=== PATIENT | male | born 1995 | race Hispanic/Latino ===

== ENCOUNTER 2020-06-03 10:00 | Emergency (ER) | payer MEDICARE ==
[2020-06-03] MEDS ORDERED: ONDANSETRON 4 MG ODT TAB PO ONE (11:44)
[2020-06-03] MEDS ORDERED: HYOSCYAMINE SUBL 0.125 MG TAB SL ONE (11:44)
[2020-06-03] MEDS ORDERED: ALUM-MAG HYDROXIDE-SIMETHICONE 200-200-20MG/5ML ORAL LIQD 30 ML PO ONE (11:44)
[2020-06-03] MEDS ORDERED: FAMOTIDINE 20 MG TAB PO ONE (11:44)
--- NOTE | 2020-06-03 11:54 | Emergency Department Report ---
ED General Adult HPI - General Chief complaint: Weakness Stated complaint: BP HIGH WEAKNESS Time Seen by Provider: 06/03/20 11:34 Source: patient Mode of arrival: Ambulatory Limitations: No Limitations - History of Present Illness Initial comments: Patient is a 24-year-old male presents emergency room with complaints of substernal chest pain that began this morning. He states that it comes and goes. He states that the pain is short mild pain per patient. He states he has been off of his nexium for 4 weeks. He states that he does get a burning se nsation from the epigastric region up to the throat. He states that he also has generalized weakness and occasional dry cough. He denies any fever, vomiting, diarrhea, shortness of breath, leg swelling. He has a past medical history of autism, bipolar, schizophrenia, "mild cerebral palsy". Allergy to penicillin. He denies any SI or HI. Patient is currently staying at [facility]. - Related Data Previous Rx's Medication Instructions Recorded Last Taken Type Docusate Sodium [Colace] 100 mg PO BID PRN #14 capsule 06/03/20 Unknown Rx Famotidine [Pepcid] 40 mg PO QHS #30 tablet 06/03/20 Unknown Rx Sucralfate [Carafate] 1 gm PO ACHS 7 Days #21 tablet 06/03/20 Unknown Rx Allergies Allergy/AdvReac Type Severity Reaction Status Date / Time Penicillins Allergy Rash Verified 06/03/20 10:32 ED Review of Systems ROS: Stated complaint: BP HIGH WEAKNESS Other details as noted in HPI Comment: All other systems reviewed and negative ED Past Medical Hx - Past Medical History Previous Medical History?: Yes Hx Psychiatric Treatment: Yes (schizoaffective, bipolar) Additional medical history: autism. cerebral palsy - Surgical History Past Surgical History?: Yes Additional Surgical History: wisdom teeth - Social History Smoking Status: Never Smoker Substance Use Type: None - Medications Home Medications: Home Medications Medication Instructions Recorded Confirmed Last Taken Type Docusate Sodium [Colace] 100 mg PO BID PRN #14 capsule 06/03/20 Unknown Rx Famotidine [Pepcid] 40 mg PO QHS #30 tablet 06/03/20 Unknown Rx Sucralfate [Carafate] 1 gm PO ACHS 7 Days #21 tablet 06/03/20 Unknown Rx ED Physical Exam - General Limitations: No Limitations General appearance: alert, in no apparent distress - Head Head exam: Present: atraumatic, normocephalic - Eye Eye exam: Present: normal appearance - ENT ENT exam: Present: mucous membranes moist - Respiratory Respiratory exam: Present: normal lung sounds bilaterally. Absent: respiratory distress, wheezes, rales, rhonchi, stridor, chest wall tenderness, accessory muscle use, decreased breath sounds, prolonged expiratory - Cardiovascular Cardiovascular Exam: Present: normal rhythm, tachycardia, normal heart sounds. Absent: systolic murmur, diastolic murmur, rubs, gallop - Extremities Exam Extremities exam: Absent: pedal edema, joint swelling, calf tenderness - Neurological Exam Neurological exam: Present: alert, oriented X3 - Psychiatric Psychiatric exam: Present: normal affect, normal mood - Skin Skin exam: Present: warm, dry ED Course Vital Signs 06/03/20 06/03/20 10:38 16:23 Temperature 98.3 F 98.8 F Pulse Rate 121 H 87 Respiratory 18 18 Rate Blood Pressure 147/87 Blood Pressure 118/73 [Right] O2 Sat by Pulse 96 98 Oximetry ED Medical Decision Making - Lab Data Result diagrams: 06/03/20 11:48 06/03/20 11:48 Lab Results 06/03/20 06/03/20 06/03/20 Range/Units 11:48 11:48 11:48 WBC 4.3 L (4.5-11.0) K/mm3 RBC 4.77 (3.65-5.03) M/mm3 Hgb 15.2 (11.8-15.2) gm/dl Hct 42.5 (35.5-45.6) % MCV 89 (84-94) fl MCH 32 (28-32) pg MCHC 36 H (32-34) % RDW 12.5 L (13.2-15.2) % Plt Count 217 (140-440) K/mm3 Lymph % (Auto) 31.1 (13.4-35.0) % Nicholas % (Auto) 11.9 H (0.0-7.3) % Eos % (Auto) 3.1 (0.0-4.3) % Baso % (Auto) 1.3 (0.0-1.8) % Lymph # 1.3 (1.2-5.4) K/mm3 Nicholas # 0.5 (0.0-0.8) K/mm3 Eos # 0.1 (0.0-0.4) K/mm3 Baso # 0.1 (0.0-0.1) K/mm3 Seg Neutrophils % 52.6 (40.0-70.0) % Seg Neutrophils # 2.3 (1.8-7.7) K/mm3 Sodium 139 (137-145) mmol/L Potassium 3.9 (3.6-5.0) mmol/L Chloride 99.3 (98-107) mmol/L Carbon Dioxide 26 (22-30) mmol/L Anion Gap 18 mmol/L BUN 9 (9-20) mg/dL Creatinine 0.8 (0.8-1.3) mg/dL Estimated GFR > 60 ml/min BUN/Creatinine Ratio 11 % Glucose 145 H (75-100) mg/dL Calcium 9.7 (8.4-10.2) mg/dL Magnesium 1.90 (1.7-2.3) mg/dL Total Bilirubin 0.20 (0.1-1.2) mg/dL AST 16 (5-40) units/L ALT 17 (7-56) units/L Alkaline Phosphatase 54 (35-129) units/L Total Creatine Kinase 133 (55-170) units/L Troponin T < 0.010 (0.00-0.029) ng/mL Total Protein 7.2 (6.3-8.2) g/dL Albumin 4.3 (3.9-5) g/dL Albumin/Globulin Ratio 1.5 % TSH 1.280 (0.270-4.200) mlU/mL Urine Color (Yellow) Urine Turbidity (Clear) Urine pH (5.0-7.0) Ur Specific [place] (1.003-1.030) Urine Protein (Negative) mg/dL Urine Glucose (UA) (Negative) mg/dL Urine Ketones (Negative) mg/dL Urine Blood (Negative) Urine Nitrite (Negative) Urine Bilirubin (Negative) Urine Urobilinogen (<2.0) mg/dL Ur Leukocyte Esterase (Negative) Urine WBC (Auto) (0.0-6.0) /HPF Urine RBC (Auto) (0.0-6.0) /HPF 06/03/20 06/03/20 Range/Units 14:17 14:35 WBC (4.5-11.0) K/mm3 RBC (3.65-5.03) M/mm3 Hgb (11.8-15.2) gm/dl Hct (35.5-45.6) % MCV (84-94) fl MCH (28-32) pg MCHC (32-34) % RDW (13.2-15.2) % Plt Count (140-440) K/mm3 Lymph % (Auto) (13.4-35.0) % Nicholas % (Auto) (0.0-7.3) % Eos % (Auto) (0.0-4.3) % Baso % (Auto) (0.0-1.8) % Lymph # (1.2-5.4) K/mm3 Nicholas # (0.0-0.8) K/mm3 Eos # (0.0-0.4) K/mm3 Baso # (0.0-0.1) K/mm3 Seg Neutrophils % (40.0-70.0) % Seg Neutrophils # (1.8-7.7) K/mm3 Sodium (137-145) mmol/L Potassium (3.6-5.0) mmol/L Chloride (98-107) mmol/L Carbon Dioxide (22-30) mmol/L Anion Gap mmol/L BUN (9-20) mg/dL Creatinine (0.8-1.3) mg/dL Estimated GFR ml/min BUN/Creatinine Ratio % Glucose (75-100) mg/dL Calcium (8.4-10.2) mg/dL Magnesium (1.7-2.3) mg/dL Total Bilirubin (0.1-1.2) mg/dL AST (5-40) units/L ALT (7-56) units/L Alkaline Phosphatase (35-129) units/L Total Creatine Kinase (55-170) units/L Troponin T < 0.010 (0.00-0.029) ng/mL Total Protein (6.3-8.2) g/dL Albumin (3.9-5) g/dL Albumin/Globulin Ratio % TSH (0.270-4.200) mlU/mL Urine Color Colorless (Yellow) Urine Turbidity Clear (Clear) Urine pH 8.0 H (5.0-7.0) Ur Specific [place] 1.005 (1.003-1.030) Urine Protein <15 mg/dl (Negative) mg/dL Urine Glucose (UA) Neg (Negative) mg/dL Urine Ketones Neg (Negative) mg/dL Urine Blood Neg (Negative) Urine Nitrite Neg (Negative) Urine Bilirubin Neg (Negative) Urine Urobilinogen < 2.0 (<2.0) mg/dL Ur Leukocyte Esterase Neg (Negative) Urine WBC (Auto) < 1.0 (0.0-6.0) /HPF Urine RBC (Auto) < 1.0 (0.0-6.0) /HPF Vital Signs 06/03/20 06/03/20 10:38 16:23 Temperature 98.3 F 98.8 F Pulse Rate 121 H 87 Respiratory 18 18 Rate Blood Pressure 147/87 Blood Pressure 118/73 [Right] O2 Sat by Pulse 96 98 Oximetry - EKG Data EKG shows normal: sinus rhythm, axis, intervals, QRS complexes, ST-T waves Rate: tachycardia (at 100) - Radiology Data Radiology results: report reviewed CHEST 2 VIEWS INDICATION / CLINICAL INFORMATION: Chest Pain. COMPARISON: None available. FINDINGS: SUPPORT DEVICES: None. HEART / MEDIASTINUM: No significant abnormality. LUNGS / PLEURA: No significant pulmonary or pleural abnormality. No pneumothorax. ADDITIONAL FINDINGS: No significant additional findings. IMPRESSION: 1. No acute findings. Signer Name: Khanh Coley MD Signed: 06/03/2020 1:48 PM Workstation Name: [id number] Transcribed By: TL Dictated By: Khanh Coley MD Electronically Authenticated By: Khanh Coley MD Signed Date/Time: 06/03/201347 DD/ 1347 TD/TT: - Medical Decision Making Patient is a 24-year-old male presents emergency room with complaints of substernal chest pain that began this morning. He states that it comes and goes. He states that the pain is short mild pain per patient. He states he has been off of his nexium for 4 weeks. He states that he does get a burning sensation from the epigastric region up to the throat. He states that he also has generalized weakness and occasional dry cough. He denies any fever, vomiting, diarrhea, shortness of breath, leg swelling. He has a past medical history of autism, bipolar, schizophrenia, "mild cerebral palsy". Allergy to penicillin. He denies any SI or HI. Patient is currently staying at [facility]. Initial triage vitals with tachycardia which improved to normal upon repeat. No abnormality on physical examination as documented in chart. Labs are stable. Troponin is negative x2. UA is within normal limits. Chest x-ray with no acute process. Patient given GI cocktail and symptoms improved. Patient is low risk based on Wells criteria for PE, PE very unlikely. appears symptoms are more likely related to acid reflux. heart score is 0, FÁTIMA score is 0. EKG with HR 100, otherwise normal. pt given prescription for pepcid and carafate. pt states that he also previously used to take colace to help with BMs and does not have anymore, given refill, he states he is still having BMs and passing gas, no n/v, no abd pain. advised pt Please take medication as prescribed. Please follow-up with a primary care doctor. Return to emergency room for any new or worsening symptoms. - Differential Diagnosis GERD, PUD, anxiety, anemia, dehydration, rhabdo, costochrondritis, ACS, PTX Critical care attestation.: If time is entered above; I have spent that time in minutes in the direct care of this critically ill patient, excluding procedure time. ED Disposition Clinical Impression: Atypical chest pain, Generalized weakness GERD (gastroesophageal reflux disease) Qualifiers: Esophagitis presence: without esophagitis Qualified Code(s): K21.9 - Gastro- esophageal reflux disease without esophagitis Disposition: DC-01 TO HOME OR SELFCARE Is pt being admited?: No Does the pt Need Aspirin: No Condition: Stable Instructions: Chest Pain (ED), Diet for Ulcers and Gastritis (ED), Gastroesophageal Reflux Disease (ED), Weakness (ED) Additional Instructions: Please take medication as prescribed. Please follow-up with a primary care doctor. Return to emergency room for any new or worsening symptoms. Prescriptions: Famotidine [Pepcid] 40 mg PO QHS #30 tablet Sucralfate [Carafate] 1 gm PO ACHS 7 Days #21 tablet Docusate Sodium [Colace] 100 mg PO BID PRN #14 capsule PRN Reason: Constipation Referrals: PRIMARY CARE, [Primary Care Provider] - 2-3 Days Time of Disposition: 15:54 Print Language: YAKUT
[2020-06-03 12:12] LABS: Basophils # (Auto) 0.1 K/mm3 (0.0-0.1); Basophils % (Auto) 1.3 % (0.0-1.8); Eosinophils # (Auto) 0.1 K/mm3 (0.0-0.4); Eosinophils % (Auto) 3.1 % (0.0-4.3); Lymphocytes # (Auto) 1.3 K/mm3 (1.2-5.4); Lymphocytes % (Auto) 31.1 % (13.4-35.0); Mean Corpuscular HGB Conc 36 % (32-34); Mean Corpuscular Volume 89 fl (84-94); Monocytes # (Auto) 0.5 K/mm3 (0.0-0.8); Monocytes % (Auto) 11.9 % (0.0-7.3); Platelet Count 217 K/mm3 (140-440); Red Blood Count 4.77 M/mm3 (3.65-5.03); Red Cell Distribution Width 12.5 % (13.2-15.2)
[2020-06-03 12:13] LABS: Hematocrit 42.5 % (35.5-45.6); Hemoglobin 15.2 gm/dl (11.8-15.2)
[2020-06-03 12:31] LABS: Alanine Aminotransferase 17 units/L (7-56); Albumin 4.3 g/dL (3.9-5); BUN/Creatinine Ratio 11; Blood Urea Nitrogen 9 mg/dL (9-20); Calcium 9.7 mg/dL (8.4-10.2); Hemolysis Index 35
--- NOTE | 2020-06-03 13:52 | XRay Report ---
CHEST 2 VIEWS INDICATION / CLINICAL INFORMATION: Chest Pain. COMPARISON: None available. FINDINGS: SUPPORT DEVICES: None. HEART / MEDIASTINUM: No significant abnormality. LUNGS / PLEURA: No significant pulmonary or pleural abnormality. No pneumothorax. ADDITIONAL FINDINGS: No significant additional findings. IMPRESSION: 1. No acute findings. Signer Name: Khanh Coley MD Signed: 06/03/2020 1:48 PM Workstation Name: [id number]
[2020-06-03 14:54] LABS: Bilirubin,Urine NEG (Negative); Blood,Urine NEG (Negative); Color,Urine Colorless (Yellow); Protein,Urine <15 mg/dL mg/dL (Negative); RBC,Urine < 1.0 /HPF (0.0-6.0); Urobilinogen,Urine < 2.0 mg/dL (<2.0)
[2020-06-03 14:59] LABS: WBC,Urine < 1.0 /HPF (0.0-6.0)
[2020-06-03 16:24] VITALS: BP 118/73
== END 2020-06-03 16:24 | disposition home or self-care (01) ==
LOC: ED 10:28
DX: K21.9 Gastro-esophageal reflux disease without esophagitis (principal); R07.89 Other chest pain; R53.1 Weakness; F31.9 Bipolar disorder, unspecified; Z98.890 Other specified postprocedural states; Z79.899 Other long term (current) drug therapy; Z88.0 Allergy status to penicillin
CPT/HCPCS: 36415; 71046; 80053; 81001; 82550; 83735; 84443; 84484; 85025; 93005; Q0162

== ENCOUNTER 2021-11-30 21:29 | Emergency (ER) | payer MEDICARE ==
--- NOTE | 2021-11-30 22:17 | Emergency Department Report ---
ED General Adult HPI - General Chief complaint: Extremity Injury, Lower Stated complaint: LT LEG PAIN/POSS DVT Time Seen by Provider: 11/30/21 22:08 Source: patient Mode of arrival: Stretcher Limitations: No Limitations - History of Present Illness Initial comments: Patient is 26-year-old male brought to the emergency room from [facility] on a 1013 for evaluation of left leg pain that started this morning. Patient stated that his pain started when he pulled his leg this morning and he felt muscle pain. Patient was sent here for evaluation for DVT. Patient denies any other complaint. Patient denies any chest pain or shortness of breath. No fever or chills. -: This morning - Related Data Previous Rx's Medication Instructions Recorded Last Taken Type Docusate Sodium [Colace] 100 mg PO BID PRN #14 capsule 06/03/20 Unknown Rx Famotidine [Pepcid] 40 mg PO QHS #30 tablet 06/03/20 Unknown Rx Sucralfate [Carafate] 1 gm PO ACHS 7 Days #21 tablet 06/03/20 Unknown Rx Allergies Allergy/AdvReac Type Severity Reaction Status Date / Time Penicillins Allergy Rash Verified 06/03/20 10:32 ED Review of Systems ROS: Stated complaint: LT LEG PAIN/POSS DVT Other details as noted in HPI Comment: All other systems reviewed and negative Constitutional: denies: chills, fever Respiratory: denies: cough, shortness of breath, SOB with exertion, SOB at rest Cardiovascular: denies: chest pain, palpitations Gastrointestinal: denies: abdominal pain, nausea Musculoskeletal: myalgia. denies: back pain Neurological: denies: headache, weakness ED Past Medical Hx - Past Medical History Previous Medical History?: Yes Hx Psychiatric Treatment: Yes (schizoaffective, bipolar) Additional medical history: autism. cerebral palsy - Surgical History Past Surgical History?: Yes Additional Surgical History: wisdom teeth - Social History Smoking Status: Never Smoker Substance Use Type: None - Medications Home Medications: Home Medications Medication Instructions Recorded Confirmed Last Taken Type Docusate Sodium [Colace] 100 mg PO BID PRN #14 capsule 06/03/20 Unknown Rx Famotidine [Pepcid] 40 mg PO QHS #30 tablet 06/03/20 Unknown Rx Sucralfate [Carafate] 1 gm PO ACHS 7 Days #21 tablet 06/03/20 Unknown Rx ED Physical Exam - General Limitations: No Limitations General appearance: alert, in no apparent distress - Head Head exam: Present: atraumatic, normocephalic, normal inspection - Eye Eye exam: Present: normal appearance - ENT ENT exam: Present: normal exam, normal orophraynx, mucous membranes moist - Neck Neck exam: Present: normal inspection, full ROM. Absent: tenderness, meningismus - Respiratory Respiratory exam: Present: normal lung sounds bilaterally - Cardiovascular Cardiovascular Exam: Present: regular rate, normal rhythm, normal heart sounds - GI/Abdominal GI/Abdominal exam: Present: soft, normal bowel sounds. Absent: distended, tenderness, guarding, rebound, rigid, mass, bruit, pulsatile mass, hernia - Extremities Exam Extremities exam: Present: normal inspection, full ROM, normal capillary refill. Absent: tenderness - Back Exam Back exam: Present: normal inspection, full ROM. Absent: CVA tenderness (R), CVA tenderness (L) - Neurological Exam Neurological exam: Present: alert, oriented X3, CN II-XII intact, normal gait, reflexes normal. Absent: motor sensory deficit - Psychiatric Psychiatric exam: Present: anxious. Absent: suicidal ideation - Skin Skin exam: Present: warm, intact, normal color ED Course Vital Signs 11/30/21 21:43 Temperature 98 F Pulse Rate 97 H Respiratory 18 Rate Blood Pressure 142/82 O2 Sat by Pulse 97 Oximetry ED Medical Decision Making - Radiology Data Radiology results: report reviewed - Medical Decision Making Patient is 26-year-old male brought to the emergency room from [facility] on a 1013 for evaluation of left leg pain that started this morning. Patient stated that his pain started when he pulled his leg this morning and he felt muscle pain. Patient was sent here for evaluation for DVT. Patient denies any other complaint. Patient denies any chest pain or shortness of breath. No fever or chills. Patient remained stable in the ER with stable vital sign. Left lower extremity Doppler ultrasound is negative for DVT. Patient given prescription for Naprosyn and advised to follow-up with his primary doctor as needed. Critical care attestation.: If time is entered above; I have spent that time in minutes in the direct care of this critically ill patient, excluding procedure time. ED Disposition Clinical Impression: Left leg pain Disposition: [address] [place] [address] Is pt being admited?: No Condition: Stable Instructions: Leg Cramps Referrals: PRIMARY CARE, [Referring] - 3-5 Days
--- NOTE | 2021-11-30 23:00 | Vascular Lab Report ---
DUPLEX DOPPLER LOWER EXTREMITY VEINS, LEFT INDICATION / CLINICAL INFORMATION: left calf pain. TECHNIQUE: Duplex doppler imaging was performed through the veins of the left lower extremity using venous compr ession and other maneuvers. COMPARISON: None available. FINDINGS: LEFT COMMON FEMORAL VEIN: Negative. LEFT FEMORAL VEIN: Negative. LEFT POPLITEAL VEIN: Negative. LEFT CALF VEINS: Negative. ADDITIONAL FINDINGS: None. IMPRESSION: 1. No sonographic evidence for DVT in the left lower extremity. Signer Name: Mark Holder MD Signed: 11/30/2021 10:56 PM Workstation Name: [id number]
[2021-12-01 00:59] VITALS: BP 123/86
== END 2021-12-01 00:58 ==
LOC: ED 21:29
DX: M79.605 Pain in left leg (principal); F31.9 Bipolar disorder, unspecified; F25.9 Schizoaffective disorder, unspecified; Z98.890 Other specified postprocedural states
CPT/HCPCS: 99284